=== PATIENT | male | born 1990 | race Two or more races ===

== ENCOUNTER 2025-03-30 16:26 | Emergency (ER) | payer SELFPAY ==
[2025-03-30] VITALS (24 sets, daily range): BP systolic 109–131; BP diastolic 57–74; PULSE 102–116; RESP 18–38; TEMP 36.4–36.9; O2SAT 97–100
--- NOTE | ~2025-03-30 | US_ITS ---
EXAM: ABDOMEN ULTRASOUND HISTORY: possible cirrhosis COMPARISON: None FINDINGS: LIVER: The liver is increased in echogenicity and unremarkable in size. Recanalization of the umbilical vein is presented on the submitted images demonstrating phasic flow. The portal vein is patent, demonstrating hepatopedal, but phasic flow. Dedicated views of the contour of the liver surface is not presented on the submitted images. GALLBLADDER: The gallbladder is markedly decompressed, and otherwise unremarkable. BILE DUCTS: Common bile duct measures 3.7mm. No intrahepatic biliary ductal dilatation is identified. PANCREAS: Limited evaluation of the pancreas secondary to overlying bowel gas IMPRESSION: Secondary signs suggesting portal hypertension, as detailed above. Cross-sectional imaging (contrast-enhanced CT examination of the abdomen and pelvis) is recommended f or further evaluation, if the patient is clinically able. Reviewed, dictated and finalized at location A. IMPRESSION: Secondary signs suggesting portal hypertension, as detailed above. Cross-sectional imaging (contrast-enhanced CT examination of the abdomen and pe lvis) is recommended for further evaluation, if the patient is clinically able.
--- NOTE | 2025-03-30 16:33 | ED_ITS ---
HPI - Recheck/Abnormal Lab/Rx General Chief Complaint: Recheck/Abnormal Lab/Rx <Sakina Alarcon PA-C - Last Filed: 04/01/25 09:21> Stated Complaint: sent by PCP for abnormal labs <Sakina Alarcon PA-C - Last Filed: 04/01/25 09:21> Time Seen by Provider: 03/30/25 16:33 <Sakina Alarcon PA-C - Last Filed: 04/01/25 09:21> Focused HPI: This is a 34 year old male that presents to the ER for abnormal outpatient blood work. Reports he has had a sore throat and some abdominal discomfort over the last month. He also reports shortness of breath, fatigue. He was seen by his PCP and had outpatient blood work which showed anemia, elevated liver function tests. Sent to the ER for further evaluation. GENERAL: Jaundiced, well-nourished, and in no acute distress. HEAD: Normocephalic, atraumatic. CHEST: Clear to auscultation. ?No respiratory distress. HEART: Regular rate and rhythm.? NEURO: ?Alert and oriented x3. Patient screened in triage and initial orders placed.? ?Additional care and disposition to be based upon?diagnostic testing and treatment. <Sakina Alarcon PA-C - Last Filed: 04/01/25 09:21> History of Present Illness HPI narrative: Agree with HPI. Reports increased fatigue and new leg swelling over last 2 months. Denies any rectal bleeding. No LOC. Short of breath with exertion. Reports regular alcohol intake of 2-3 beers a day. He quit 2 days ago. No previous history of cirrhosis or of anemia. <Bijan Knight MD - Last Filed: 03/30/25 21:39> Related Data Allergies/Adverse Reactions: Allergies Allergy/AdvReac Type Severity Reaction Status Date / Time No Known Allergies Allergy Verified 03/30/25 16:27 <Sakina Alarcon PA-C - Last Filed: 04/01/25 09:21> Review of Systems 2 Review of Systems: All systems reviewed & are unremarkable except as noted in HPI and below <Bijan Knight MD - Last Filed: 03/30/25 21:39> Constitutional: Constitutional: Reports no additional constitutional complaints <Bijan Knight MD - Last Filed: 03/30/25 21:39> ENT: Reports system reviewed and no additional complaints, except as documented <Bijan Knight MD - Last Filed: 03/30/25 21:39> Cardiovascular: Cardiovascular: Reports no additional cardiovascular complaints <Bijan Knight MD - Last Filed: 03/30/25 21:39> Respiratory: Respiratory: Reports no additional respiratory complaints < Bijan Knight MD - Last Filed: 03/30/25 21:39> Gastrointestinal: Gastrointestinal: Reports no additional gastrointestinal complaints <Bijan Knight MD - Last Filed: 03/30/25 21:39> Integumentary/Breasts: Skin/Breast: Reports system reviewed and no additional complaints, except as docu <Bijan Knight MD - Last Filed: 03/30/25 21:39> Neurologic: Reports system reviewed and no additional complaints, except as documented <Bijan Knight MD - Last Filed: 03/30/25 21:39> PMFSH Past Medical History Medical History: Medical History (Updated 04/01/25 @ 09:21 by Sakina Alarcon PA-C) No pertinent past medical history <Sakina Alarcon PA-C - Last Filed: 04/01/25 09:21> Surgical History Surgical History: Surgical History (Updated 03/30/25 @ 19:32 by Bijan Knight MD) No history of previous surgery <Sakina Alarcon PA-C - Last Filed: 04/01/25 09:21> Social History Social History: Social History (Updated 03/30/25 @ 19:33 by Bijan Knight MD) Alcohol use details: 2-3 beers a day, quit 03/28/2025. <Sakina Alarcon PA-C - Last Filed: 04/01/25 09:21> Exam 2 Narrative: GENERAL: A heel-appearing, well-nourished, and in no acute distress. HEAD: Normocephalic, atraumatic. EYES: PERRL and EOMI. Scleral icterus ENT: Mucous membranes moist. CHEST: Clear to auscultation. No respiratory distress. HEART: Tachycardic regular. Flow murmur in all quadrants. Normal peripheral pulses. ABDOMEN: Soft, nontender, nondistended. EXTREMITIES: Normal range of motion. +2 edema. SKIN: Warm, dry, no rash. NEURO: Alert and oriented x3. PSYCH: Normal mood and affect. <Bijan Knight MD - Last Filed: 03/30/25 21:39> Course Course Emergency Course: Discussed case with [facility]. I did talk to hepatology due to concerns of this could be liver issue. I also spoke with Dr. Kebede with the hospitalist service. There is concerned that patient has a hemolytic anemia that is occurring. Additional labs including magnesium/phosphorus/haptoglobin/fibrinogen/D-dimer added on. Patient received transfusion. He will be hydrated. He will be an urgent transfer to [facility] we are waiting a bed. Patient educated about diagnosis and treatment plan and verbalized understanding. <Bijan Knight MD - Last Filed: 03/30/25 21:39> Vital Signs Vital signs: Vital Signs Temperature 97.6 F 03/30/25 16:32 Pulse Rate 116 H 03/30/25 16:32 Respiratory Rate 20 03/30/25 16:32 Blood Pressure 121/72 03/30/25 16:32 Pulse Oximetry 100 03/30/25 16:32 Oxygen Delivery Room Air 03/30/25 16:32 Temperature 98.1 F 03/31/25 16:52 Pulse Rate 106 H 03/31/25 16:52 Respiratory Rate 18 03/31/25 16:52 Blood Pressure 107/67 03/31/25 16:52 Pulse Oximetry 100 03/31/25 16:52 Oxygen Delivery Room Air 03/30/25 16:32 <Sakina Alarcon PA-C - Last Filed: 04/01/25 09:21> Vital Signs Temperature 97.6 F 03/30/25 16:32 Pulse Rate 116 H 03/30/25 16:32 Respiratory Rate 20 03/30/25 16:32 Blood Pressure 121/72 03/30/25 16:32 Pulse Oximetry 100 03/30/25 16:32 Oxygen Delivery Room Air 03/30/25 16:32 Temperature 98.1 F 03/31/25 16:52 Pulse Rate 106 H 03/31/25 16:52 Respiratory Rate 18 03/31/25 16:52 Blood Pressure 107/67 03/31/25 16:52 Pulse Oximetry 100 03/31/25 16:52 Oxygen Delivery Room Air 03/30/25 16:32 <Bijan Knight MD - Last Filed: 03/30/25 21:39> MDM - Recheck/Abnormal Lab/Rx Lab Data Result diagrams: 03/31/25 08:22 03/30/25 16:47 <Sakina Alarcon PA-C - Last Filed: 04/01/25 09:21> Labs: Lab Results 03/30/25 03/30/25 03/30/25 Range/Units 16:47 17:01 17:52 WBC 5.9 (4.5-10.0) K/mm3 RBC 2.93 L (4.6-6.20) M/mm3 Hgb 5.4 L* (14.0-18.0) g/dL Hct 20.4 L* (42.0-52.0) % MCV 69.6 L (80-100) fl MCH 18.4 L (26-34) pg MCHC 26.5 L (32-36) g/dl RDW 28.0 H (11.5-14.5) % Plt Count 68 L (150-375) k/mm3 MPV TNP Immature Gran % (Auto) 1.0 H (0-0.5) % Neut % (Auto) 62.1 (45.5-73.1) % Lymph % (Auto) 24.4 (18.3-44.2) % [place] % (Auto) 7.0 (2.6-8.5) % Eos % (Auto) 5.3 H (0-4.4) % Baso % (Auto) 0.2 (0.2-1.2) % Lymph # (Auto) 1.44 (0.9-3.2) K/mm3 [place] # (Auto) 0.4 (0.1-0.6) K/mm3 Eos # (Auto) 0.3 (0-0.3) K/mm3 Baso # (Auto) 0.0 (0.0-0.1) K/mm3 Abs Immat Gran (auto) 0.06 H (0.00-0.031) K/mm3 Absolute Neuts (auto) 3.7 (1.3-6.7) K/mm3 Absolute Nucleated RBC 0.000 (0.0-0.012) K/mm3 Band Neutrophils % Not Reportable Nucleated RBC % 0.0 (0.0-0.2) % Platelet Estimate Decreased (Adequate) % Immature Plt Fraction 3.0 (0.9-11.2) % Hypochromasia 3+ Poikilocytosis 2+ Anisocytosis 1+ Target Cells 2+ Ovalocytes 1+ Schistocytes Rare Absolute Retic 0.09 (0.02-0.10) 10^6/uL Percent Retic 2.99 (0.7-4.3) % Immature Retic Fraction 34.4 H (3.0-15.9) % Retic Hgb Content 18.2 L (28.2-36.6) pg Haptoglobin (43-212) mg/dL PT 35.2 H (11.1-14.7) Seconds INR 3.4 APTT 54.9 H (22.3-36.8) Seconds Fibrinogen (215-510) mg/dl D-Dimer (<0.48) ug/mL Sodium 128 L (137-145) mmol/L Potassium 3.9 (3.4-5.0) mmol/L Chloride 104 (98-107) mmol/L Carbon Dioxide 20 L (22-30) mmol/L Anion Gap 4 (4-12) mmol/L BUN 5 L (9-20) mg/dL Creatinine 0.64 L (0.7-1.3) mg/dL Estim Creat Clear Calc 132 ml/min Estimated GFR > 60 (59 - ) Glucose 165 H (65-110) mg/dL Uric Acid (3.5-8.5) mg/dL Calcium 6.8 L (8.4-10.2) mg/dL Phosphorus (2.5-4.5) mg/dL Magnesium (1.6-2.3) mg/dL Iron 45 L (49-181) ug/dL TIBC 223 L (265-497) ug/dL % Saturation 20 (20-50) % Total Bilirubin 7.1 H (0.2-1.3) mg/dL Direct Bilirubin 1.0 H (0-0.3) mg/dL Indirect Bilirubin 2.9 H (0-1.1) mg/dL AST 93 H (17-59) U/L ALT 35 (6-50) U/L Alkaline Phosphatase 216 H (38-126) U/L Lactate Dehydrogenase 354 H (120-246) U/L Total Protein 8.0 (6.3-8.2) g/dL Albumin 2.1 L (3.5-5.1) g/dL Lipase 279 (23-300) U/L Vitamin B12 988.0 H (239-931) pg/mL Folate 8.0 (2.76->20) ng/mL TSH (Reflex) 1.690 (0.465-4.68) uIU/mL Urine Color Dark yellow (Yellow) Urine Appearance Clear (Clear) Urine pH 6.5 (5.0-9.0) Ur Specific [place] 1.020 (1.001-1.035) Urine Protein Trace (Negative) mg/dL Urine Glucose (UA) Negative (Negative) mg/dL Urine Ketones Trace H (Negative) mg/dL Ur Blood (Man) Negative (Negative) Urine Nitrate Positive H (Negative) Urine Bilirubin 3+ H (Negative) Urine Urobilinogen 1.0 (<2.0) mg/dL Add Ur Microanalysis Reviewed Leukocyte Esterase Rfl 1+ H (Negative) ROMAN/UL Urine RBC 3-5 H (0-2) /hpf Urine WBC 6-10 H (0-3) /hpf Ur Squamous Epith Cells Few (Few) /hpf Urine Bacteria None seen /hpf Urine Casts 0-2 Ethyl Alcohol < 10 (<10) mg/dL Hepatitis A IgM Ab Negative (Negative) Hep Bs Antigen Negative (Negative) Hep B Core IgM Ab Negative (Negative) Hepatitis C Ab Screen Negative (Negative) Monoscreen Negative (Negative) Influenza A (RT-PCR) Negative (Negative) Influenza B (RT-PCR) Negative (Negative) RSV (RT-PCR) Negative (Negative) SARS-CoV-2 RNA (RT-PCR) Negative (Negative) Group A Strep (PCR) Not detected (Negative) Blood Type B Positive Antibody Screen Negative ROCCO, IgG Interpret Positive ROCCO, Poly Interpret Positive ROCCO, Complement Interp Negative Enhanced Crossmatch See Detail 03/30/25 03/31/25 Range/Units 21:37 08:22 WBC (4.5-10.0) K/mm3 RBC (4.6-6.20) M/mm3 Hgb 7.2 L (14.0-18.0) g/dL Hct 25.1 L (42.0-52.0) % MCV (80-100) fl MCH (26-34) pg MCHC (32-36) g/dl RDW (11.5-14.5) % Plt Count (150-375) k/mm3 MPV Immature Gran % (Auto) (0-0.5) % Neut % (Auto) (45.5-73.1) % Lymph % (Auto) (18.3-44.2) % [place] % (Auto) (2.6-8.5) % Eos % (Auto) (0-4.4) % Baso % (Auto) (0.2-1.2) % Lymph # (Auto) (0.9-3.2) K/mm3 [place] # (Auto) (0.1-0.6) K/mm3 Eos # (Auto) (0-0.3) K/mm3 Baso # (Auto) (0.0-0.1) K/mm3 Abs Immat Gran (auto) (0.00-0.031) K/mm3 Absolute Neuts (auto) (1.3-6.7) K/mm3 Absolute Nucleated RBC (0.0-0.012) K/mm3 Band Neutrophils % Nucleated RBC % (0.0-0.2) % Platelet Estimate (Adequate) % Immature Plt Fraction (0.9-11.2) % Hypochromasia Poikilocytosis Anisocytosis Target Cells Ovalocytes Schistocytes Absolute Retic (0.02-0.10) 10^6/uL Percent Retic (0.7-4.3) % Immature Retic Fraction (3.0-15.9) % Retic Hgb Content (28.2-36.6) pg Haptoglobin <10 L (43-212) mg/dL PT (11.1-14.7) Seconds INR APTT (22.3-36.8) Seconds Fibrinogen 73 L (215-510) mg/dl D-Dimer 1.61 H (<0.48) ug/mL Sodium (137-145) mmol/L Potassium (3.4-5.0) mmol/L Chloride (98-107) mmol/L Carbon Dioxide (22-30) mmol/L Anion Gap (4-12) mmol/L BUN (9-20) mg/dL Creatinine (0.7-1.3) mg/dL Estim Creat Clear Calc ml/min Estimated GFR (59 - ) Glucose (65-110) mg/dL Uric Acid 4.8 (3.5-8.5) mg/dL Calcium (8.4-10.2) mg/dL Phosphorus 3.1 (2.5-4.5) mg/dL Magnesium 1.8 (1.6-2.3) mg/dL Iron (49-181) ug/dL TIBC (265-497) ug/dL % Saturation (20-50) % Total Bilirubin (0.2-1.3) mg/dL Direct Bilirubin (0-0.3) mg/dL Indirect Bilirubin (0-1.1) mg/dL AST (17-59) U/L ALT (6-50) U/L Alkaline Phosphatase (38-126) U/L Lactate Dehydrogenase (120-246) U/L Total Protein (6.3-8.2) g/dL Albumin (3.5-5.1) g/dL Lipase (23-300) U/L Vitamin B12 (239-931) pg/mL Folate (2.76->20) ng/mL TSH (Reflex) (0.465-4.68) uIU/mL Urine Color (Yellow) Urine Appearance (Clear) Urine pH (5.0-9.0) Ur Specific [place] (1.001-1.035) Urine Protein (Negative) mg/dL Urine Glucose (UA) (Negative) mg/dL Urine Ketones (Negative) mg/dL Ur Blood (Man) (Negative) Urine Nitrate (Negative) Urine Bilirubin (Negative) Urine Urobilinogen (<2.0) mg/dL Add Ur Microanalysis Leukocyte Esterase Rfl (Negative) ROMAN/UL Urine RBC (0-2) /hpf Urine WBC (0-3) /hpf Ur Squamous Epith Cells (Few) /hpf Urine Bacteria /hpf Urine Casts Ethyl Alcohol (<10) mg/dL Hepatitis A IgM Ab (Negative) Hep Bs Antigen (Negative) Hep B Core IgM Ab (Negative) Hepatitis C Ab Screen (Negative) Monoscreen (Negative) Influenza A (RT-PCR) (Negative) Influenza B (RT-PCR) (Negative) RSV (RT-PCR) (Negative) SARS-CoV-2 RNA (RT-PCR) (Negative) Group A Strep (PCR) (Negative) Blood Type Antibody Screen ROCCO, IgG Interpret ROCCO, Poly Interpret ROCCO, Complement Interp Enhanced Crossmatch <Sakina Alarcon PA-C - Last Filed: 04/01/25 09:21> Lab Results 03/30/25 03/30/25 03/30/25 Range/Units 16:47 17:01 17:52 WBC 5.9 (4.5-10.0) K/mm3 RBC 2.93 L (4.6-6.20) M/mm3 Hgb 5.4 L* (14.0-18.0) g/dL Hct 20.4 L* (42.0-52.0) % MCV 69.6 L (80-100) fl MCH 18.4 L (26-34) pg MCHC 26.5 L (32-36) g/dl RDW 28.0 H (11.5-14.5) % Plt Count 68 L (150-375) k/mm3 MPV TNP Immature Gran % (Auto) 1.0 H (0-0.5) % Neut % (Auto) 62.1 (45.5-73.1) % Lymph % (Auto) 24.4 (18.3-44.2) % [place] % (Auto) 7.0 (2.6-8.5) % Eos % (Auto) 5.3 H (0-4.4) % Baso % (Auto) 0.2 (0.2-1.2) % Lymph # (Auto) 1.44 (0.9-3.2) K/mm3 [place] # (Auto) 0.4 (0.1-0.6) K/mm3 Eos # (Auto) 0.3 (0-0.3) K/mm3 Baso # (Auto) 0.0 (0.0-0.1) K/mm3 Abs Immat Gran (auto) 0.06 H (0.00-0.031) K/mm3 Absolute Neuts (auto) 3.7 (1.3-6.7) K/mm3 Absolute Nucleated RBC 0.000 (0.0-0.012) K/mm3 Band Neutrophils % Not Reportable Nucleated RBC % 0.0 (0.0-0.2) % Platelet Estimate Decreased (Adequate) % Immature Plt Fraction 3.0 (0.9-11.2) % Hypochromasia 3+ Poikilocytosis 2+ Anisocytosis 1+ Target Cells 2+ Ovalocytes 1+ Schistocytes Rare Absolute Retic 0.09 (0.02-0.10) 10^6/uL Percent Retic 2.99 (0.7-4.3) % Immature Retic Fraction 34.4 H (3.0-15.9) % Retic Hgb Content 18.2 L (28.2-36.6) pg Haptoglobin (43-212) mg/dL PT 35.2 H (11.1-14.7) Seconds INR 3.4 APTT 54.9 H (22.3-36.8) Seconds Fibrinogen (215-510) mg/dl D-Dimer (<0.48) ug/mL Sodium 128 L (137-145) mmol/L Potassium 3.9 (3.4-5.0) mmol/L Chloride 104 (98-107) mmol/L Carbon Dioxide 20 L (22-30) mmol/L Anion Gap 4 (4-12) mmol/L BUN 5 L (9-20) mg/dL Creatinine 0.64 L (0.7-1.3) mg/dL Estim Creat Clear Calc 132 ml/min Estimated GFR > 60 (59 - ) Glucose 165 H (65-110) mg/dL Uric Acid (3.5-8.5) mg/dL Calcium 6.8 L (8.4-10.2) mg/dL Phosphorus (2.5-4.5) mg/dL Magnesium (1.6-2.3) mg/dL Iron 45 L (49-181) ug/dL TIBC 223 L (265-497) ug/dL % Saturation 20 (20-50) % Total Bilirubin 7.1 H (0.2-1.3) mg/dL Direct Bilirubin 1.0 H (0-0.3) mg/dL Indirect Bilirubin 2.9 H (0-1.1) mg/dL AST 93 H (17-59) U/L ALT 35 (6-50) U/L Alkaline Phosphatase 216 H (38-126) U/L Lactate Dehydrogenase 354 H (120-246) U/L Total Protein 8.0 (6.3-8.2) g/dL Albumin 2.1 L (3.5-5.1) g/dL Lipase 279 (23-300) U/L Vitamin B12 988.0 H (239-931) pg/mL Folate 8.0 (2.76->20) ng/mL TSH (Reflex) 1.690 (0.465-4.68) uIU/mL Urine Color Dark yellow (Yellow) Urine Appearance Clear (Clear) Urine pH 6.5 (5.0-9.0) Ur Specific [place] 1.020 (1.001-1.035) Urine Protein Trace (Negative) mg/dL Urine Glucose (UA) Negative (Negative) mg/dL Urine Ketones Trace H (Negative) mg/dL Ur Blood (Man) Negative (Negative) Urine Nitrate Positive H (Negative) Urine Bilirubin 3+ H (Negative) Urine Urobilinogen 1.0 (<2.0) mg/dL Add Ur Microanalysis Reviewed Leukocyte Esterase Rfl 1+ H (Negative) ROMAN/UL Urine RBC 3-5 H (0-2) /hpf Urine WBC 6-10 H (0-3) /hpf Ur Squamous Epith Cells Few (Few) /hpf Urine Bacteria None seen /hpf Urine Casts 0-2 Ethyl Alcohol < 10 (<10) mg/dL Hepatitis A IgM Ab Negative (Negative) Hep Bs Antigen Negative (Negative) Hep B Core IgM Ab Negative (Negative) Hepatitis C Ab Screen Negative (Negative) Monoscreen Negative (Negative) Influenza A (RT-PCR) Negative (Negative) Influenza B (RT-PCR) Negative (Negative) RSV (RT-PCR) Negative (Negative) SARS-CoV-2 RNA (RT-PCR) Negative (Negative) Group A Strep (PCR) Not detected (Negative) Blood Type B Positive Antibody Screen Negative ROCCO, IgG Interpret Positive ROCCO, Poly Interpret Positive ROCCO, Complement Interp Negative Enhanced Crossmatch See Detail 03/30/25 03/31/25 Range/Units 21:37 08:22 WBC (4.5-10.0) K/mm3 RBC (4.6-6.20) M/mm3 Hgb 7.2 L (14.0-18.0) g/dL Hct 25.1 L (42.0-52.0) % MCV (80-100) fl MCH (26-34) pg MCHC (32-36) g/dl RDW (11.5-14.5) % Plt Count (150-375) k/mm3 MPV Immature Gran % (Auto) (0-0.5) % Neut % (Auto) (45.5-73.1) % Lymph % (Auto) (18.3-44.2) % [place] % (Auto) (2.6-8.5) % Eos % (Auto) (0-4.4) % Baso % (Auto) (0.2-1.2) % Lymph # (Auto) (0.9-3.2) K/mm3 [place] # (Auto) (0.1-0.6) K/mm3 Eos # (Auto) (0-0.3) K/mm3 Baso # (Auto) (0.0-0.1) K/mm3 Abs Immat Gran (auto) (0.00-0.031) K/mm3 Absolute Neuts (auto) (1.3-6.7) K/mm3 Absolute Nucleated RBC (0.0-0.012) K/mm3 Band Neutrophils % Nucleated RBC % (0.0-0.2) % Platelet Estimate (Adequate) % Immature Plt Fraction (0.9-11.2) % Hypochromasia Poikilocytosis Anisocytosis Target Cells Ovalocytes Schistocytes Absolute Retic (0.02-0.10) 10^6/uL Percent Retic (0.7-4.3) % Immature Retic Fraction (3.0-15.9) % Retic Hgb Content (28.2-36.6) pg Haptoglobin <10 L (43-212) mg/dL PT (11.1-14.7) Seconds INR APTT (22.3-36.8) Seconds Fibrinogen 73 L (215-510) mg/dl D-Dimer 1.61 H (<0.48) ug/mL Sodium (137-145) mmol/L Potassium (3.4-5.0) mmol/L Chloride (98-107) mmol/L Carbon Dioxide (22-30) mmol/L Anion Gap (4-12) mmol/L BUN (9-20) mg/dL Creatinine (0.7-1.3) mg/dL Estim Creat Clear Calc ml/min Estimated GFR (59 - ) Glucose (65-110) mg/dL Uric Acid 4.8 (3.5-8.5) mg/dL Calcium (8.4-10.2) mg/dL Phosphorus 3.1 (2.5-4.5) mg/dL Magnesium 1.8 (1.6-2.3) mg/dL Iron (49-181) ug/dL TIBC (265-497) ug/dL % Saturation (20-50) % Total Bilirubin (0.2-1.3) mg/dL Direct Bilirubin (0-0.3) mg/dL Indirect Bilirubin (0-1.1) mg/dL AST (17-59) U/L ALT (6-50) U/L Alkaline Phosphatase (38-126) U/L Lactate Dehydrogenase (120-246) U/L Total Protein (6.3-8.2) g/dL Albumin (3.5-5.1) g/dL Lipase (23-300) U/L Vitamin B12 (239-931) pg/mL Folate (2.76->20) ng/mL TSH (Reflex) (0.465-4.68) uIU/mL Urine Color (Yellow) Urine Appearance (Clear) Urine pH (5.0-9.0) Ur Specific [place] (1.001-1.035) Urine Protein (Negative) mg/dL Urine Glucose (UA) (Negative) mg/dL Urine Ketones (Negative) mg/dL Ur Blood (Man) (Negative) Urine Nitrate (Negative) Urine Bilirubin (Negative) Urine Urobilinogen (<2.0) mg/dL Add Ur Microanalysis Leukocyte Esterase Rfl (Negative) ROMAN/UL Urine RBC (0-2) /hpf Urine WBC (0-3) /hpf Ur Squamous Epith Cells (Few) /hpf Urine Bacteria /hpf Urine Casts Ethyl Alcohol (<10) mg/dL Hepatitis A IgM Ab (Negative) Hep Bs Antigen (Negative) Hep B Core IgM Ab (Negative) Hepatitis C Ab Screen (Negative) Monoscreen (Negative) Influenza A (RT-PCR) (Negative) Influenza B (RT-PCR) (Negative) RSV (RT-PCR) (Negative) SARS-CoV-2 RNA (RT-PCR) (Negative) Group A Strep (PCR) (Negative) Blood Type Antibody Screen ROCCO, IgG Interpret ROCCO, Poly Interpret ROCCO, Complement Interp Enhanced Crossmatch <Bijan C. Eugene, MD - Last Filed: 03/30/25 21:39> Imaging Data Radiologist's impression: ITS Impressions Upper Quadrant Ultrasound 03/30/25 20:19 IMPRESSION: Secondary signs suggesting portal hypertension, as detailed above. Cross-sectional imaging (contrast-enhanced CT examination of the abdomen and pelvis) is recommended for further evaluation, if the patient is clinically able. <Bijan Knight MD - Last Filed: 03/30/25 21:39> Critical Care Time Critical Care Time Critical Care Time: Yes <Bijan Knight MD - Last Filed: 03/30/25 21:39> Total Critical Care Time: 35 <Bijan Knight MD - Last Filed: 03/30/25 21:39> Discharge Plan Discharge Clinical Impression: Hemolytic anemia Qualifiers: Hemolytic anemia type: acquired, unspecified Qualified Code(s): D59.9 - Acquired hemolytic anemia, unspecified <Sakina Alarcon PA-C - Last Filed: 04/01/25 09:21> Patient Disposition: Acute Care Hospital <Sakina Alarcon PA-C - Last Filed: 04/01/25 09:21> Condition: Serious <Sakina Alarcon PA-C - Last Filed: 04/01/25 09:21> Patient Language: Icelandic <Sakina Alarcon PA-C - Last Filed: 04/01/25 09:21> Follow-up/Referrals: PHYSICIAN NOT ON STAFF,NONSTAFF [Primary Care Provider] - <Sakina Alarcon PA-C - Last Filed: 04/01/25 09:21>
[2025-03-30 17:09] LABS: Basophils Percent Auto 0.2 % (0.2-1.2); Eosinophils Absolute Auto 0.3 K/mm3 (0-0.3); Eosinophils Percent Auto 5.3 % (0-4.4); Immature Granulocyte Absolute 0.06 K/mm3 (0.00-0.031); Lymphocytes Absolute Auto 1.44 K/mm3 (0.9-3.2); Lymphocytes Percent Auto 24.4 % (18.3-44.2); Mean Corpuscular HGB Conc 26.5 g/dl (32-36); Mean Corpuscular Hemoglobin 18.4 pg (26-34); Mean Corpuscular Volume 69.6 fl (80-100); Monocytes Absolute Auto 0.4 K/mm3 (0.1-0.6); Neutrophils Absolute Auto 3.7 K/mm3 (1.3-6.7); Neutrophils Percent Auto 62.1 % (45.5-73.1); Platelet Count Result 68 k/mm3 (150-375); Red Blood Count 2.93 M/mm3 (4.6-6.20); White Blood Count 5.9 K/mm3 (4.5-10.0)
[2025-03-30 17:15] LABS: Hematocrit 20.4 % (42.0-52.0); Hemoglobin 5.4 g/dL (14.0-18.0)
[2025-03-30 17:17] LABS: Alanine Aminotransferase 35 U/L (6-50); Albumin Level 2.1 g/dL (3.5-5.1); Alkaline Phosphatase 216 U/L (38-126); Anion Gap 4 mmol/L (4-12); Aspartate Amino Transferase 93 U/L (17-59); Bilirubin,Total 7.1 mg/dL (0.2-1.3); Blood Urea Nitrogen 5 mg/dL (9-20); Calcium 6.8 mg/dL (8.4-10.2); Carbon Dioxide 20 mmol/L (22-30); Chloride 104 mmol/L (98-107); Estimated CRCL calculation 132 ml/min; Estimated Glomerular Filt Rate > 60; Glucose 165 mg/dL (65-110); Lipase 279 U/L (23-300); Potassium 3.9 mmol/L (3.4-5.0); Sodium 128 mmol/L (137-145)
[2025-03-30 17:26] LABS: Add Urine Microscopic? YES; Appearance Urine Clear (Clear); Bacteria Urine None Seen /hpf; Bilirubin Urine 3+ (Negative); Blood Urine Negative (Negative); Color Urine Dark Yellow (Yellow); Glucose Urine UA Negative (Negative); Ketones Urine Trace mg/dL (Negative); Leukocyte Esterase Ur 1+ LEU/UL (Negative); Need Manual Microscopic Reviewed; Nitrate Urine Positive (Negative); Non Pathogenic Casts 0-2; Protein Urine Trace mg/dL (Negative); Squamous Epithelial Cell Urine Few /hpf (Few); pH Urine 6.5 (5.0-9.0)
[2025-03-30 17:28] LABS: INR 3.4; Prothrombin Time 35.2 Seconds (11.1-14.7)
[2025-03-30 17:29] LABS: Partial Thromboplastin Time 54.9 Seconds (22.3-36.8)
[2025-03-30 17:31] LABS: Strep Group A RT-PCR NOT DETECTED (Negative)
[2025-03-30 17:43] LABS: Influenza A QL RT-PCR Negative (Negative); Influenza B QL RT-PCR Negative (Negative); RSV RNA, RT-PCR Negative (Negative); SARS-CoV-2 RNA PCR Negative (Negative)
[2025-03-30 17:58] LABS: Monoscreen Negative (Negative); Negative Monotest Control Negative (Negative); Positive Monotest Control Positive (Positive)
[2025-03-30 18:08] LABS: Immature Reticulocyte Fraction 34.4 % (3.0-15.9); Reticulocyte Hemoglobin Conten 18.2 pg (28.2-36.6); Reticulocyte Percent 2.99 % (0.7-4.3); Reticulocytes Absolute 0.09 10^6/uL (0.02-0.10)
[2025-03-30 18:11] LABS: Hypochromasia 3+; Platelet Estimate Decreased (Adequate)
[2025-03-30 18:12] LABS: Anisocytosis 1+; Ovalocytes 1+; Poikilocytosis 2+
[2025-03-30 18:13] LABS: Schistocytes Rare; Target Cells 2+
[2025-03-30 19:20] LABS: Bilirubin Indirect 2.9 mg/dL (0-1.1); Lactate Dehydrogenase 354 U/L (120-246)
[2025-03-30 19:57] LABS: Iron 45 ug/dL (49-181)
[2025-03-30 20:06] LABS: Percent Iron Saturation 20 % (20-50)
[2025-03-30 20:09] LABS: Hepatitis B Surface Antigen Negative (Negative)
[2025-03-30 20:15] LABS: HAV RESULT Negative (Negative); Hepatitis B Core IgM Result Negative (Negative)
[2025-03-30 20:26] LABS: Hepatitis C Virus Antibody Negative (Negative)
--- NOTE | 2025-03-30 20:28 | PC.NURSE ---
called blood bank, and blood products are not ready at this time. blood bank informed this RN that they are running an extended crossmatch test.
[2025-03-30 21:12] LABS: Ethanol < 10 mg/dL (<10)
[2025-03-30] MEDS: SODIUM CHLORIDE 0.9% IV 250 ML 30 ML IV CONT (21:49)
[2025-03-30 22:04] LABS: Magnesium 1.8 mg/dL (1.6-2.3); Phosphorus 3.1 mg/dL (2.5-4.5); Uric Acid 4.8 mg/dL (3.5-8.5)
[2025-03-30 22:22] LABS: Fibrinogen 73 mg/dl (215-510)
[2025-03-30 22:24] LABS: D Dimer 1.61 ug/mL (<0.48)
[2025-03-30] MEDS: TUBING, BLOOD SET 1 EACH XX ×2 (22:28→23:55)
[2025-03-31] VITALS (26 sets, daily range): BP systolic 107–121; BP diastolic 52–80; PULSE 100–112; RESP 18–32; TEMP 36.6–36.8; O2SAT 98–100
[2025-03-31] MEDS: SODIUM CHLORIDE 0.9% IV 1,000 ML 150 ML IV CONT ×2 (02:37→09:26)
[2025-03-31 09:03] LABS: Hematocrit 25.1 % (42.0-52.0); Hemoglobin 7.2 g/dL (14.0-18.0)
--- NOTE | 2025-03-31 09:46 | PC.NURSE ---
Spoke with Mi at [facility], they are stilll at capacity and will call when bed becomes available.
[2025-03-31 19:43] LABS: Haptoglobin <10 mg/dL (43-212)
== END 2025-03-31 16:55 | disposition short-term general hospital (02) ==
PROVIDERS: Emergency Medicine; Physician Assistant; Emergency Provider Emergency Medicine
DX: D59.9 Acquired hemolytic anemia, unspecified (principal); Z20.822 Contact with and (suspected) exposure to COVID-19
CPT/HCPCS: 36415; 36430; 76705; 80053; 80074; 81001; 82077; 82248; 82607; 82746; 83010; 83540; 83550; 83615; 83690; 83735; 84100; 84443; 84550; 85014; 85018; 85025; 85046; 85055; 85380; 85384; 85610; 85730; 86308; 86850; 86880; 86900; 86901; 86922; 86923; 87086; 87637; 87651; 96360; 96361; 99285; J7030; J7050; P9016